=== PATIENT | female | born 1975 | race Caucasian/White ===

== ENCOUNTER → 2017-06-27 | Outpatient (CLI) | payer OTHER ==
[~2017-06-27] MED LIST: IOPAMIDOL (ISOVUE 370) 100 ML BTL IV ONE
== END ==
LOC: FIMAGING 14:18
PROVIDERS: ATTEND Family Medicine
DX: R51 Headache (principal); J32.0 Chronic maxillary sinusitis
CPT/HCPCS: Q9967